=== PATIENT | female | born 1935 | race Caucasian/White ===

== ENCOUNTER 2016-08-18 20:27 | Emergency (ER) | payer MEDICARE ==
[~2016-08-18] VITALS: Ht 170.2 cm; Wt 65.0 kg
[~2016-08-18 20:27] MED LIST: ALEN70 PO; AMLO5TAB96 PO; CALTTAB2 PO; CHOL1CAP6 PO; ENAL5 PO; GABA100C4 PO; LEVO75TA42 PO; LOVA10TA PO; SPIRCAP INH; SYMB160A INH; TIMO0.5S6 EACH EYE
--- NOTE | 2016-08-18 20:48 | PD ---
HPI Chief Complaint: Fall Time Seen by Provider: 20:44 Travel History International Travel<30 days: No Contact w/Intl Traveler<30days: No Traveled to known affect area: No History of Present Illness HPI 80-year-old female presents to the emergency department from home by EMS transport after a witnessed mechanical trip and fall. Patient was reportedly leaning forward getting something out of a chest of drawers reportedly and lost her balance and fell forward. Fall was witnessed by spouse who assisted her up to the bed and neighbors came by to help and called 911. She did contuse her face and a complain of neck pain. No new upper or lower extremity numbness tingling or weakness. Patient was noted to have a skin tear to the right forearm and later complained of distal right forearm plain without deformity or point tenderness. Patient rates discomfort as 7/10 in intensity. Cervical collar is in place. Patient was ambulatory at the scene according to paramedics and bystanders. No seizure activity was witnessed. No loss of consciousness was witnessed. PFSH Past Medical History Narrative Medical Dementia Left breast cancer hypertension chest pain migraine COPD appendectomy eye surgery left breast lumpectomy; no alcohol use no tobacco use; nursing notes reviewed Heart Rhythm Problems: No Cancer: Yes (skin, LEFT BREAST) Cardiovascular Problems: No High Cholesterol: No Chest Pain: Yes Congestive Heart Failure: No Cerebrovascular Accident: No Diabetes: No Endocrine: Yes GERD: No Glaucoma: No Genitourinary: No Headaches: Yes Hepatitis: No Hiatal Hernia: No Hypertension: Yes Immune Disorder: No Musculoskeletal: No Neurologic: Yes (MIGRANES) Psychiatric: No Reproductive: No Respiratory: Yes (COPD) Migraines: Yes Myocardial Infarction: No Seizures: No Thyroid Disease: Yes Ulcer: No Past Surgical History Abdominal Surgery: Yes (APPENDECTOMY) AICD: No Appendectomy: Yes Cardiac Surgery: No Cholecystectomy: No Ear Surgery: No Endocrine Surgery: No Eye Surgery: Yes (HILARIA. CATARACT EXTRACT., MUSCLE CLIP RIGHT EYE) Genitourinary Surgery: No Gynecologic Surgery: No Joint Replacement: No Oral Surgery: No Pacemaker: No Thoracic Surgery: Yes (LEFT BREAST LUMPECTOMY) Social History Alcohol Use: No Tobacco Use: No Substance Use: No Allergies-Medications (Allergen,Severity, Reaction): Coded Allergies: Adhesives (Unverified Allergy, Severe, TEARS SKIN, 08/18/16) Sulfa (Verified Allergy, Severe, RASH, 08/18/16) Reported Meds & Prescriptions Reported Meds & Active Scripts Active Active Prescriptions or Reported Medications Unobtainable Review of Systems ROS Limitations: Clinical Condition Except as stated in HPI: all other systems reviewed are Neg General / Constitutional: No: Fever, Chills Eyes: No: Visual changes HENT: Positive: Neck Pain, No: Headaches, Neck Stiffness Cardiovascular: No: Chest Pain or Discomfort, Diaphoresis, Syncope Respiratory: No: Shortness of Breath Gastrointestinal: No: Nausea, Vomiting, Abdominal Pain Genitourinary: No: Urgency, Frequency, Dysuria Musculoskeletal: No: Arthralgias Skin: Positive Rash (skin tear) Neurologic: No: Weakness, Dizziness, Syncope, Focal Abnormalities, Coordination Problem Psychiatric: No: Anxiety Endocrine: No: Heat Intolerance Hematologic/Lymphatic: No: Easy Bruising Physical Exam Narrative GENERAL: Well-developed frail female in no acute distress no respiratory distress; GCS 15; c-collar in place SKIN: Warm and dry. HEAD: Atraumatic. Normocephalic. No scalp soft tissue swelling or abrasion or laceration or bony abnormalities EYES: Pupils equal and round. Extraocular muscles intact. No scleral icterus. No injection or drainage. ENT: No nasal bleeding or discharge. Mucous membranes pink and moist. NECK: Trachea midline. No JVD. Cervical collar in place no midline tenderness to direct palpation along the cervical spine. CARDIOVASCULAR: Regular rate and rhythm. Chest wall: Nontender to direct palpation no ecchymosis or abrasion RESPIRATORY: No accessory muscle use. Clear to auscultation. Breath sounds equal bilaterally. GASTROINTESTINAL: Abdomen soft, non-tender, nondistended. Hepatic and splenic margins not palpable. MUSCULOSKELETAL: Extremities without clubbing, cyanosis, or edema. No obvious deformities. Superficial skin tears to the dorsum of the right forearm no deformity. Bilateral upper extremity or lower extremities demonstrate intact range of motion and distally remain neurovascular tendon intact. NEUROLOGICAL: Awake and alert. No obvious cranial nerve deficits. Motor grossly within normal limits. Five out of 5 muscle strength in the arms and legs. Normal speech. PSYCHIATRIC: Appropriate mood and affect; insight and judgment normal. Data Data Last Documented VS Vital Signs Date Time Temp Pulse Resp B/P Pulse Ox O2 Delivery O2 Flow Rate FiO2 08/18/16 21:08 98.8 75 18 177/72 100 Room Air Orders Blood Glucose (08/18/16 20:45) Ct Brain W/O Iv Contrast(Rout) (08/18/16 ) Ct Facial Bones W/O Iv Cont (08/18/16 ) Ct Cerv Spine W/O Contrast (08/18/16 ) Forearm (2vws) (08/18/16 ) Wound Care (08/18/16 20:45) MDM Medical Decision Making Medical Screen Exam Complete: Yes Emergency Medical Condition: Yes Medical Record Reviewed: Yes Interpretation(s) Last Impressions [facility] X-Ray 08/18/16 0000 Signed Impressions: Service Date/Time: August 20:53 - CONCLUSION: 1. Osteopenia. 2. No fracture. Onesimo Welsh Jr., MD Maxillofacial CT 08/18/16 0000 Signed Impressions: Service Date/Time: August 20:58 - CONCLUSION: Normal examination. Onesimo Welsh Jr., MD Head CT 08/18/16 0000 Signed Impressions: Service Date/Time: August 20:56 - CONCLUSION: 1. No acute intracranial abnormality. 2. Atrophy. 3. Chronic small vessel ischemic change. Onesimo Welsh Jr., MD Cervical Spine CT 08/18/16 0000 Signed Impressions: Service Date/Time: August 20:58 - CONCLUSION: 1. No acute abnormality. 2. Multilevel degenerative changes. Onesimo Welsh Jr., MD Vital Signs Date Time Temp Pulse Resp B/P Pulse Ox O2 Delivery O2 Flow Rate FiO2 08/18/16 21:08 98.8 75 18 177/72 100 Room Air Differential Diagnosis Mechanical fall, near syncope, anemia, arrhythmia, minor closed head injury, ICH , cervical spine sprain strain fracture cord injury, facial contusion facial fracture, forearm contusion, fracture Narrative Course Imaging studies ordered; wound site cleansed and dressed Imaging studies revealed no evidence of acute bony injury or intracranial pathology. At 9:58 PM cervical collar removed by me; Tylenol administered for complaint of pain; tetanus status updated. Patient with family members at bedside is stable for outpatient management. Diagnosis Primary Impression: Cervical strain Qualified Code: S16.1XXA - Cervical strain, initial encounter Additional Impressions: Facial contusion Qualified Code: S00.83XA - Facial contusion, initial encounter Head injury, closed Qualified Code: S09.90XA - Head injury, closed, initial encounter CONTUSION OF UNSPECIFIED FOREARM, INITIAL ENCOUNTER Referrals: Primary Care Physician 2 days Patient Instructions: General Instructions Additional Instructions: Follow head injury precautions 24 hours Keep wound site clean and dry follow wound care instructions May use ice intermittently to areas of soft tissue swelling and contusion for first 12-24 hours then may use moist heat for comfort May take acetaminophen/Tylenol as needed for minor pain Return to the emergency department for any concerns or change in condition Increase fluid hydration Follow-up with primary care provider call office in a.m. to schedule follow-up appointment Scripts Unable to Obtain Active Prescriptions or Reported Meds Disposition: DISCHARGE HOME Condition: Stable Jeana Flower MD Aug 18, 2016 20:47
--- NOTE | 2016-08-18 21:01 | RADRPT ---
EXAM DATE/TIME: 08/18/2016 20:53 [facility] COMPARISON: No previous studies available for comparison. INDICATIONS : Right arm pain and abrasion, fell MEDICAL HISTORY : Arthritis. SURGICAL HISTORY : None. ENCOUNTER: Initial ACUITY: 1 day PAIN SCORE: 6/10 LOCATION: Right Forearm FINDINGS: Two view examination of the right forearm demonstrates no evidence of fracture or dislocation. Bony mineralization is reduced. The soft tissue structures are intact. CONCLUSION: 1. Osteopenia. 2. No fracture. Onesimo Welsh Jr., MD on August 18, 2016 at 20:58 Board Certified Radiologist. This report was verified electronically.
[2016-08-18 21:08] VITALS: BP 177/72; PULSE 75; RESP 18; TEMP 98.8; O2SAT 100
--- NOTE | 2016-08-18 21:20 | RADRPT ---
EXAM DATE/TIME: 08/18/2016 20:56 [facility] COMPARISON: No previous studies available for comparison. INDICATIONS : Trauma, fall. RADIATION DOSE: 56.35 CTDIvol (mGy) MEDICAL HISTORY : Hypertension. SURGICAL HISTORY : None. ENCOUNTER: Initial ACUITY: 1 day PAIN SCALE: 5/10 LOCATION: cranial TECHNIQUE: Multiple contiguous axial images were obtained of the head. Using automated exposure control and adj ustment of the mA and/or kV according to patient size, radiation dose was kept as low as reasonably a chievable to obtain optimal diagnostic quality images. FINDINGS: CEREBRUM: Atrophy. Periventricular low attenuation change involving both cerebral hemispheres. The ventricles a re normal for age. No evidence of midline shift, mass lesion, hemorrhage or acute infarction. No ex tra-axial fluid collections are seen. POSTERIOR FOSSA: The cerebellum and brainstem are intact. The 4th ventricle is midline. The cerebellopontine angle i s unremarkable. EXTRACRANIAL: The visualized portion of the orbits is intact. SKULL: The calvaria is intact. No evidence of skull fracture. CONCLUSION: 1. No acute intracranial abnormality. 2. Atrophy. 3. Chronic small vessel ischemic change. Onesimo Welsh Jr., MD on August 18, 2016 at 21:18 Board Certified Radiologist. This report was verified electronically.
--- NOTE | 2016-08-18 21:21 | RADRPT ---
EXAM DATE/TIME: 08/18/2016 20:58 [facility] COMPARISON: No previous studies available for comparison. INDICATIONS : Trauma, fall. RADIATION DOSE: 21.96 CTDIvol (mGy) MEDICAL HISTORY : Hypertension. SURGICAL HISTORY : None. ENCOUNTER: Initial ACUITY: 1 day PAIN SCORE: 5/10 LOCATION: facial TECHNIQUE: Volumetric scanning of the facial bones was performed. Using automated exposure control and adjustme nt of the mA and/or kV according to patient size, radiation dose was kept as low as reasonably achiev able to obtain optimal diagnostic quality images. FINDINGS: ORBITS: The orbital and infraorbital osseous structures are intact. The retroconal structures have a normal configuration. No radiopaque foreign bodies are seen. NASAL BONE: The nasal bone and maxillary spine are intact ZYGOMATIC ARCHES: Symmetric without evidence of fracture. SINUSES: The maxillary, ethmoid and frontal sinuses are intact. No air-fluid levels seen. NASAL CAVITY: The nasal septum is intact and midline. The lacrimal ducts are intact. SOFT TISSUES: No radiopaque foreign bodies seen. No soft-tissue swelling is seen. INTRACRANIAL: No intracranial air seen. CRIBIFORM PLATE: Grossly intact. CONCLUSION: Normal examination. Oneismo Welsh Jr., MD on August 18, 2016 at 21:19 Board Certified Radiologist. This report was verified electronically.
--- NOTE | 2016-08-18 21:38 | RADRPT ---
EXAM DATE/TIME: 08/18/2016 20:58 [facility] COMPARISON: No previous studies available for comparison. INDICATIONS : Trauma, fall. RADIATION DOSE: 19.12 CTDIvol (mGy) MEDICAL HISTORY : None SURGICAL HISTORY : None. ENCOUNTER: Initial ACUITY: 1 day PAIN SCALE: 5/10 LOCATION: neck TECHNIQUE: Volumetric scanning of the cervical spine was performed. Multiplanar reconstructions in the sagittal, coronal and oblique axial planes were performed. Using automated exposure control and adjustment o f the mA and/or kV according to patient size, radiation dose was kept as low as reasonably achievable to obtain optimal diagnostic quality images. FINDINGS: Study is motion degraded. VERTEBRAE: Normal vertebral body height. ALIGNMENT: There is a grade 1 anterolisthesis of C4 on C5. C2-C3: The bony spinal canal is normal in size. No evidence of disc bulge or herniation. The neural forami na are bilaterally patent. C3-C4: There is a central bulge. No abutment of the cord. Neural foramina and central canal are patent. C4-C5: There is a mild broad-based disc bulge. No central canal stenosis. Neural foramina are patent. C5-C6: There is a mild broad-based disc osteophyte complex. No central canal stenosis. Neural foramina are p atent. C6-C7: There is a mild broad-based disc osteophyte complex. No central canal stenosis. Neural foramina are p atent. C7-T1: The bony spinal canal is normal in size. No evidence of disc bulge or herniation. The neural forami na are bilaterally patent. CONCLUSION: 1. No acute abnormality. 2. Multilevel degenerative changes. Onesimo Welsh Jr., MD on August 18, 2016 at 21:33 Board Certified Radiologist. This report was verified electronically.
[2016-08-18] MEDS ORDERED: TETANUS/DIPHTHERIA TOXOID ADULT 0.5 ML VIAL IM ONE (22:00)
[2016-08-18] MEDS ORDERED: ACETAMINOPHEN 500 MG CPLT PO ONE (22:00)
== END 2016-08-18 22:47 | disposition home or self-care (01) ==
LOC: NEPC 20:27
DX: S16.1XXA Strain of muscle, fascia and tendon at neck level, initial encounter (principal); S09.90XA Unspecified injury of head, initial encounter; S00.83XA Contusion of other part of head, initial encounter; S50.11XA Contusion of right forearm, initial encounter; S51.811A Laceration without foreign body of right forearm, initial encounter; F03.90 Unspecified dementia, unspecified severity, without behavioral disturbance, psychotic disturbance, mood disturbance, and anxiety; I10 Essential (primary) hypertension; E07.9 Disorder of thyroid, unspecified; W01.0XXA Fall on same level from slipping, tripping and stumbling without subsequent striking against object, initial encounter; Z23 Encounter for immunization; Z86.69 Personal history of other diseases of the nervous system and sense organs; Z87.09 Personal history of other diseases of the respiratory system
CPT/HCPCS: 70450; 70486; 72125; 73090; 90471; 90714